=== PATIENT | male | born 1955 | race Caucasian/White ===

== ENCOUNTER 2021-02-20 21:16 | Inpatient (IN) | payer BC ==
[~2021-02-20] VITALS: Ht 175.3 cm; Wt 83.9 kg
[2021-02-21 01:28] LABS: HEMOGLOBIN 18.9 gm/dl (14.0-17.5); RED BLOOD COUNT 6.09 M/UL (4.20-5.50); WHITE BLOOD COUNT 5.7 K/UL (4.5-11.0)
[2021-02-21 02:22] LABS: BUN/CREATININE RATIO 17 (0-10)
[2021-02-21] MEDS ORDERED: TRICOR 145 MG145 MG PO (09:16)
[2021-02-21] MEDS ORDERED: VALIUM 5 MG TAB5 MG PO (09:16)
[2021-02-21] MEDS ORDERED: NICOTINE PATCH1 EAC5 TOP (09:17)
[2021-02-21] MEDS ORDERED: SYMBICORT 16010.2 GM INH (09:18)
[2021-02-21] MEDS ORDERED: VALACYCLOVIR500 MG PO (09:18)
[2021-02-21] MEDS ORDERED: TOPROL XL50 MG PO (09:18)
[2021-02-22 03:48] LABS: HEMOGLOBIN 17.8 gm/dl (14.0-17.5); RED BLOOD COUNT 5.8 M/UL (4.20-5.50)
[2021-02-22 03:58] LABS: WHITE BLOOD COUNT 11.6 K/UL (4.5-11.0)
[2021-02-22 04:21] LABS: BUN/CREATININE RATIO 26 (0-10)
[2021-02-23 06:10] LABS: HEMOGLOBIN 17.2 gm/dl (14.0-17.5); RED BLOOD COUNT 5.62 M/UL (4.20-5.50); WHITE BLOOD COUNT 13.8 K/UL (4.5-11.0)
[2021-02-23 06:43] LABS: BUN/CREATININE RATIO 27 (0-10)
[2021-02-24] MEDS ORDERED: DECADRON6 MG PO (08:47)
[2021-02-24] MEDS ORDERED: VENTOLIN HFA 66.7 GM INH (08:47)
== END 2021-02-24 13:31 | disposition home or self-care (01) | DRG 177 ==
LOC: ER1 21:16 → CDU 02-21 04:10 → M/S 02-21 04:10
PROVIDERS: Family Medicine; Physician Assistant; ADMIT Internal Medicine
PROC: XW033E5 Introduction of Remdesivir Anti-infective into Peripheral Vein, Percutaneous Approach, New Technology Group 5 (ICD-10-PCS; principal; 2021-02-21)
PROC: 3E0333Z Introduction of Anti-inflammatory into Peripheral Vein, Percutaneous Approach (ICD-10-PCS; 2021-02-21)
PROC: 8E0ZXY6 Isolation (ICD-10-PCS; 2021-02-21)
DX: U07.1 COVID-19 (principal); J96.01 Acute respiratory failure with hypoxia; J12.82 Pneumonia due to coronavirus disease 2019; F17.200 Nicotine dependence, unspecified, uncomplicated; D72.828 Other elevated white blood cell count; T38.0X5A Adverse effect of glucocorticoids and synthetic analogues, initial encounter; G47.33 Obstructive sleep apnea (adult) (pediatric); I10 Essential (primary) hypertension; E78.5 Hyperlipidemia, unspecified; K76.0 Fatty (change of) liver, not elsewhere classified; J43.2 Centrilobular emphysema
CPT/HCPCS: 36415; 36600; 71045; 80053; 82550; 82553; 82803; 83605; 83874; 83880; 84484; 85025; 85610; 85730; 87040; 93005; 94640; 94664; 94760; 96374; 99285; J1100; J1650; J7030; Q9967; U0002

== ENCOUNTER → 2021-03-10 | Outpatient (CLI) | payer BC ==
[~2021-03-10] MED LIST: DECADRON6 MG PO; NICOTINE PATCH1 EAC5 TOP; SYMBICORT 16010.2 GM INH; TOPROL XL50 MG PO; TRICOR 145 MG145 MG PO; VALACYCLOVIR500 MG PO; VALIUM 5 MG TAB5 MG PO; VENTOLIN HFA 66.7 GM INH
== END ==
LOC: HEART 5 14:58
DX: J44.9 Chronic obstructive pulmonary disease, unspecified (principal); Z86.16 Personal history of COVID-19; R94.2 Abnormal results of pulmonary function studies
CPT/HCPCS: 94060; 94729